=== PATIENT | female | born 1990 | race Caucasian/White ===

== ENCOUNTER 2020-12-15 09:30 | Outpatient (REF) | payer OTHER, SELFPAY ==
[2020-12-16 03:29] LABS: CT PCR NOT DETECTED (Not Detect.); NG PCR NOT DETECTED (Not Detect.)
[2020-12-19 20:57] LABS: HPV mRNA E6/E7 rflx Not Detected (Not Detected)
== END 2020-12-15 09:31 | disposition home or self-care (01) ==
LOC: HO.LAB 09:30
PROVIDERS: PCP Physician Assistant; Visit Provider Advanced Practice Midwife
DX: Z01.419 Encounter for gynecological examination (general) (routine) without abnormal findings (principal); B00.9 Herpesviral infection, unspecified; L73.8 Other specified follicular disorders; L02.32 Furuncle of buttock; Z20.2 Contact with and (suspected) exposure to infections with a predominantly sexual mode of transmission; Z86.19 Personal history of other infectious and parasitic diseases; Z80.3 Family history of malignant neoplasm of breast
CPT/HCPCS: 87491; 87591; 87624; 88142

== ENCOUNTER 2021-12-26 06:56 | Outpatient (RCR) | payer OTHER, SELFPAY | END 2022-07-15 12:31 | disposition home or self-care (01) | LOC: HO.PT 06:56 | PROVIDERS: PCP Physician Assistant; Visit Provider Nurse Practitioner Family | DX: M54.50 Low back pain, unspecified (principal) | CPT/HCPCS: 97110; 97112; 97140; 97162 ==

== ENCOUNTER 2022-03-11 14:32 | Outpatient (REF) | payer OTHER, SELFPAY ==
--- NOTE | ~2022-03-11 | XR_ITS ---
EXAMINATION: XR LUMBOSACRAL SPINE CLINICAL INFORMATION: Lumbago with sciatica COMPARISON: None TECHNIQUE: Three views of the lumbosacral spine. FINDINGS: There is normal lumbar lordosis. The vertebral heights and alignment is normal. There is loss of L5-S1 disc height. Rest the disc heights are normal. No visible acute fracture, dislocation or lytic process seen. SI joints are symmetrical and normal. XR/XR lumbar spine 2-3V IMPRESSION: Mild degenerative disc changes L5-S1 disc level. No visible acute fracture or dislocation seen.
== END 2022-03-11 14:33 | disposition home or self-care (01) ==
LOC: HO.XRAY 14:32
PROVIDERS: PCP Physician Assistant; Visit Provider Nurse Practitioner Family
DX: M54.40 Lumbago with sciatica, unspecified side (principal); M47.816 Spondylosis without myelopathy or radiculopathy, lumbar region; M62.830 Muscle spasm of back
CPT/HCPCS: 72100; 99202

== ENCOUNTER 2022-05-25 12:21 | Emergency (ER) | payer OTHER, SELFPAY ==
[2022-05-25 12:25] VITALS: BP 129/73; PULSE 84; RESP 18; TEMP 36.5; O2SAT 100; BMI 32.8
--- NOTE | 2022-05-25 14:07 | ED.LOWEXIN ---
HPI - Extremity Injury (Lower) General Chief Complaint: Extremity Injury, Lower Stated Complaint: possible broken foot Time Seen by Provider: 05/25/22 13:24 Source: patient Mode of arrival: ambulatory Limitations: no limitations History of Present Illness HPI Narrative: Patient presents emergency department for evaluation of right foot injury sustained at work prior to arrival. She states that a piece of trim board had fallen off of a cart landing onto her right foot. Is having pain particularly with weight-bearing and walking. There is bruising to the tip of her toe. Denies numbness or tingling. Is able to move the right great toe slightly but it is very painful. Related Data Previous Rx's Medication Instructions Recorded ipratropium bromide 21 mcg (0.03 2 spray intranasal BID 30 days #30 01/21/22 %) nasal spray mL cyclobenzaprine 5 mg tablet 5 mg PO BEDTIME PRN muscle spasm 03/11/22 30 days #30 tabs bupropion HCl 150 mg tablet,12 hr 150 mg PO BID 30 days #60 tabs 03/13/22 sustained-release (Wellbutrin SR) diclofenac potassium 50 mg tablet 50 mg PO BID PRN pain (scale score 05/14/22 7-10) 30 days #60 tabs oxycodone 5 mg tablet 5 mg PO Q8H PRN pain #7 tabs 05/25/22 Allergies Allergy/AdvReac Type Severity Reaction Status Date / Time Sulfa (Sulfonamide Allergy Mild RASH, hives Verified 03/18/22 15:13 Antibiotics) [SULFA (SULFONAMIDE ANTIBIOTICS)] Review of Systems Review of Systems: Musculoskeletal: Positive toe pain Neurologic: No numbness or tingling Yes all other systems are reviewed and are negative [facility] Past Medical History Attestation statement: The following information was validated with the patient. Source: old records reviewed Surgical History Pilonidal cyst Family History Family History Father No problems noted. Mother No problems noted. Maternal Grandmother Breast cancer Maternal Grandfather No problems noted. Paternal Grandfather No problems noted. Paternal Grandmother No problems noted. Maternal Aunt Breast cancer Daughter No problems noted. Social History Social History Housing: House Alcohol intake: never Patient Tobacco Use Status: Current everyday Tobacco user Cigarettes Per Day: 10 e-Cigarette/Vaping Use: Never Used Second Hand Smoke Exposure: No Advance Directives: No Advance Directives Information Provided: No service: No Current occupational status: employed Current occupation: [employer] Cognitive needs: Yes (would like a Cane for support due to back pain.) Hearing needs: No Vision needs: No Physical Exam Vital Signs: Vital Signs: Last Vital Signs Temp 97.7 F 05/25/22 12:25 Pulse 84 05/25/22 12:25 Resp 18 05/25/22 12:25 BP 129/73 05/25/22 12:25 Pulse Ox 100 05/25/22 12:25 O2 Del Method 05/25/22 12:25 BMI result Body Mass Index 32.8 Appearance: Alert.?Oriented to person, place and time. No acute distress.?Normal affect. Eyes: Pupils equal, round and reactive to light.? ENT: Pharynx normal.?? Neck: Normal inspection.? Neck supple.?? CVS: Heart sounds normal. Normal heart rate and rhythm.? Pulses normal.?? Respiratory: No respiratory distress.? Lung sounds clear to auscultation bilaterally?? Abdomen: Soft and non-tender. Normoactive bowel sounds. Skin: Skin warm and dry.? Normal skin color.? Extremities: No lower extremity edema.? Full range of motion to right ankle. 2+ DP/PT pulse intact bilaterally. Right great toe with mild localized erythema, no obvious deformity. Toenail is intact. Neuro: Moves all extremities spontaneously. Sensation intact bilaterally. Ambulates with antalgic gait. Course Course Course Narrative: Patient is a 32-year-old female with no significant past medical history presenting to emergency department for evaluation of right great toe injury sustained while at work. She is overall well-appearing. Extremities neurovascularly intact distally. XR reveals a nondisplaced intra-articular vertical fracture through the distal phalanx of the great toe. Discussed these findings with patient. Right great toe and 2nd digit carlos manuel-taped together, patient placed in a postoperative shoe. Discussed plan of care for discharge home, rest, ice, elevation, acetaminophen/ibuprofen as needed pain, oxycodone for severe pain. Advised outpatient follow-up with Orthopedics, light duty work, she states that she performs her job sitting in a chair and feels that she is able to return. Reviewed worsening signs and symptoms to return back to emergency department for. All questions were answered, patient was discharged home in stable condition, ambulatory with nonantalgic gait with the application of the postop shoe MDM - Extremity Injury (Lower) Medical Records Attestation: I reviewed the patient's medical records. Imaging Data XR foot: Radiologist's impression: XR/XR foot RT min 3V IMPRESSION: Nondisplaced intra-articular vertical fracture through the distal phalanx great toe. Discharge Plan Discharge Clinical Impression: Fracture of distal phalanx of great toe Qualifiers: Laterality: right Patient Disposition: Home, Self-Care Instructions: Toe Fracture (ED) Additional Instructions: Keep the toes taped as they currently are. Wear the shoe provided any time your walking or bearing weight. Be sure to rest, apply ice for 10-15 minutes 3-4 times daily, elevate your leg with pillows above the level of your chest at all times when possible. You can take ibuprofen 200 mg, 3 tablets (600mg) every 6-8 hours as needed for pain, in addition to Tylenol 500 mg, 2 tablets (1,000mg) every 4-6 hours as needed for pain, but not to exceed 3 doses daily (3,000mg).? Given given a prescription for oxycodone to use for severe pain unrelieved by Tylenol and ibuprofen. This is an opiate medication, it may be addictive and can make you drowsy. You should not drive, drink alcohol, operate machinery while taking this medication. You will need to follow up with Orthopedics, your been given their phone number please call their office first thing Friday. Return to the emergency department with any new or worsening symptoms or concerns. Prescriptions: New oxycodone 5 mg tablet 5 mg PO Q8H PRN (Reason: pain) Qty: 7 0RF Rx Instructions: Partial Fill upon patient request. No Action ipratropium bromide 21 mcg (0.03 %) spray,non-aerosol 2 spray intranasal BID 30 Days Qty: 30 3RF Rx Instructions: administer into each nostril bupropion HCl [Wellbutrin SR] 150 mg tablet sustained-release 12 hr 150 mg PO BID 30 Days Qty: 60 3RF diclofenac potassium 50 mg tablet 50 mg PO BID PRN (Reason: pain (scale score 7-10)) 30 Days Qty: 60 1RF cyclobenzaprine 5 mg tablet 5 mg PO BEDTIME PRN (Reason: muscle spasm) 30 Days Qty: 30 3RF Referrals: Mago Rasmussen PA-C [Physician [employer]ing [employer] Operator] - Stand Alone Forms: Work/School Release Interventions: ED Discharge Assessment Last Done: 05/25/22 14:54 Discharge Date/Time: 05/25/22 14:55
== END 2022-05-25 14:55 | disposition home or self-care (01) ==
PROVIDERS: Emergency Provider Emergency Medicine; PCP Physician Assistant
DX: S92.424A Nondisplaced fracture of distal phalanx of right great toe, initial encounter for closed fracture (principal); W20.8XXA Other cause of strike by thrown, projected or falling object, initial encounter; Y93.89 Activity, other specified; Y92.59 Other trade areas as the place of occurrence of the external cause; Y99.0 Civilian activity done for income or pay
CPT/HCPCS: 73630; 99282; 99283

== ENCOUNTER 2022-11-10 14:27 | Emergency (ER) | payer OTHER, SELFPAY ==
--- NOTE | ~2022-11-10 | XR_ITS ---
X-RAY RIGHT ANKLE X-RAY RIGHT FOOT CLINICAL HISTORY: Pain. Fall. COMPARISON: Radiograph of the right foot 05/25/2022. TECHNIQUE: 3 views of the right ankle and 3 views of the right foot. FINDINGS: Right ankle: No acute fractures or subluxation. The ankle mortise is congruent. Diffuse nonspecific soft tissue thickening. Right foot: Subtle intra-articular fracture at the base of the fourth distal phalanx, medial surface. Chronic deformity of the distal first phalanx. Diffuse nonspecific soft tissue thickening. Dorsal calcaneus spur. XR/XR foot RT 2V IMPRESSION: RIGHT ANKLE: No acute fractures or subluxation. RIGHT FOOT: Subtle intra-articular fracture at the base of the fourth distal phalanx.
--- NOTE | ~2022-11-10 | XR_ITS ---
X-RAY RIGHT ANKLE X-RAY RIGHT FOOT CLINICAL HISTORY: Pain. Fall. COMPARISON: Radiograph of the right foot 05/25/2022. TECHNIQUE: 3 views of the right ankle and 3 views of the right foot. FINDINGS: Right ankle: No acute fractures or subluxation. The ankle mortise is congruent. Diffuse nonspecific soft tissue thickening. Right foot: Subtle intra-articular fracture at the base of the fourth distal phalanx, medial surface. Chronic deformity of the distal first phalanx. Diffuse nonspecific soft tissue thickening. Dorsal calcaneus spur. XR/XR ankle RT 2V IMPRESSION: RIGHT ANKLE: No acute fractures or subluxation. RIGHT FOOT: Subtle intra-articular fracture at the base of the fourth distal phalanx.
[2022-11-10 15:20] VITALS: BP 117/69; PULSE 72; RESP 15; TEMP 36.7; O2SAT 99; BMI 33.5
--- NOTE | 2022-11-10 15:22 | ED.FALL ---
HPI - Fall General Chief Complaint: Extremity Injury, Lower Stated Complaint: R ankle inj Related Data Previous Rx's Medication Instructions Recorded ipratropium bromide 21 mcg (0.03 2 spray intranasal BID 30 days #30 01/21/22 %) nasal spray mL cyclobenzaprine 5 mg tablet 5 mg PO BEDTIME PRN muscle spasm 03/11/22 30 days #30 tabs bupropion HCl 150 mg tablet,12 hr 150 mg PO BID 30 days #60 tabs 07/18/22 sustained-release (Wellbutrin SR) diclofenac potassium 50 mg tablet See Rx Instructions .Route 10/01/22 .COMPLEX #30 tabs sertraline 25 mg tablet 25 mg PO DAILY #30 tabs 10/08/22 Allergies Allergy/AdvReac Type Severity Reaction Status Date / Time Sulfa (Sulfonamide Allergy Mild RASH, hives Verified 10/08/22 11:54 Antibiotics) [SULFA (SULFONAMIDE ANTIBIOTICS)] [facility] Past Medical History Surgical History Pilonidal cyst Family History Family History Father No problems noted. Mother No problems noted. Maternal Grandmother Breast cancer Maternal Grandfather No problems noted. Paternal Grandfather No problems noted. Paternal Grandmother No problems noted. Maternal Aunt Breast cancer Daughter No problems noted. Social History Social History Housing: House Alcohol intake: never Patient Tobacco Use Status: Current everyday Tobacco user Tobacco use type: Cigarette Cigarette Packs Per Day: 0.5 Cigarettes Per Day: 10 e-Cigarette/Vaping Use: Never Used Second Hand Smoke Exposure: Yes Advance Directives: No Advance Directives Information Provided: No service: No Current occupational status: employed Current occupation: [employer] Cognitive needs: Yes (would like a Cane for support due to back pain.) Hearing needs: No Vision needs: No Physical Exam Vital Signs: Vital Signs: Last Vital Signs Temp 98.1 F 11/10/22 15:20 Pulse 72 11/10/22 15:20 Resp 15 11/10/22 15:20 BP 117/69 11/10/22 15:20 Pulse Ox 99 11/10/22 15:20 O2 Del Method Room Air 11/10/22 15:20 BMI result Body Mass Index 33.5 Course Course Course Narrative: RME: 32 yold female presents to the ED for right ankle pain. patient foot got caught in crack in ground and she tripped and twisted her ankle. patient denies any head injury or loss of consciosuness. patient states no other physical complatins. Discharge Plan Discharge Clinical Impression: Fall Patient Disposition: Elopement Prescriptions: No Action ipratropium bromide 21 mcg (0.03 %) spray,non-aerosol 2 spray intranasal BID 30 Days Qty: 30 3RF Rx Instructions: administer into each nostril bupropion HCl [Wellbutrin SR] 150 mg tablet sustained-release 12 hr 150 mg PO BID 30 Days Qty: 60 6RF diclofenac potassium 50 mg tablet See Rx Instructions .ROUTE .COMPLEX Qty: 30 3RF Dose Instruction: TAKE 1 TABLET BY MOUTH EVERY DAY NEEDED ONLY WITH FOOD/FULL GLASS OF WATER (TAKE FOR PAIN 7 - 10) Rx Instructions: TAKE 1 TABLET BY MOUTH EVERY DAY NEEDED ONLY WITH FOOD/FULL GLASS OF WATER (TAKE FOR PAIN 7 - 10) sertraline 25 mg tablet 25 mg PO DAILY Qty: 30 1RF cyclobenzaprine 5 mg tablet 5 mg PO BEDTIME PRN (Reason: muscle spasm) 30 Days Qty: 30 3RF Discharge Date/Time: 11/10/22 19:33
== END 2022-11-10 19:33 | disposition left against medical advice (07) ==
PROVIDERS: Emergency Provider Emergency Medicine; PCP Physician Assistant
DX: S93.401A Sprain of unspecified ligament of right ankle, initial encounter (principal); X50.1XXA Overexertion from prolonged static or awkward postures, initial encounter; Y93.9 Activity, unspecified; Y92.9 Unspecified place or not applicable; Y99.9 Unspecified external cause status; Z79.899 Other long term (current) drug therapy
CPT/HCPCS: 73600; 73620; 99281; 99283

== ENCOUNTER 2024-04-16 11:12 | Outpatient (REF) | payer OTHER, SELFPAY ==
--- NOTE | ~2024-04-16 | US_ITS ---
EXAMINATION: US OBSTETRICAL ULTRASOUND CLINICAL INFORMATION: with uncertain dates COMPARISON: None available. LMP: 02/27/2024. Gestational age by maternal dates is 7 weeks and 0 days. Estimated date of delivery by maternal dates is 12/03/2024. TECHNIQUE: Ultrasound of the maternal pelvis is performed using transabdominal and transvaginal transducers. Transvaginal imaging is performed due to inadequate visualization transabdominally. M-mode Doppler is also performed. FINDINGS: There is a single intrauterine gestational sac with visible yolk sac, which is enlarged measuring 0.9 cm with a pole. No cardiac motion was detected. There is no significant subchorionic hemorrhage or hematoma. Nabothian cysts in the cervix. CRL (crown rump length): 0.4 cm (6 weeks and 4 days +/- 4 days). TEJAS (estimated date of delivery): 12/06/2024 +/- 4 days. MATERNAL ADNEXA: The right maternal ovary measures 2.6 x 1.5 x 1.8 cm. Calcifications noted adjacent to the ovary may reflect calcified phleboliths. The left maternal ovary measures 3.7 x 2.1 x 2.4 cm. There is no significant maternal adnexal mass. No maternal pelvic ascites. US/US OB <= 14 weeks fetus IMPRESSION: 1. Single intrauterine gestation with a crown-rump length of 0.4 cm and no cardiac motion and an enlarged yolk sac measuring 0.9 cm, which are findings suspicious for but not diagnostic of early loss. Recommend follow-up ultrasound in 7-10 days and correlation with beta hCGs to assess for viability. The sonographic gestational age is 6 weeks and 4 days +/- 4 days. 2. Estimated date of delivery is 12/06/2024 +/- 4 days. 3. No maternal adnexal mass or pelvic ascites. Per software manager report, the office of Dr. Patiño was notified of the findings at the time of scan. The findings and recommendations were discussed with Dr. Carbajal recreation program coordinator physician by telephone at 04/16/2024 5:02 PM EST and it was ascertained that the content and urgency of the report was understood at the time of direct communication. Electronically signed by: Catherine Troy MD 04/16/2024 05:02 PM EDT
== END 2024-04-16 11:13 | disposition home or self-care (01) ==
LOC: HO.US 11:12
PROVIDERS: PCP Physician Assistant; Visit Provider Advanced Practice Midwife
DX: Z34.91 Encounter for supervision of normal pregnancy, unspecified, first trimester (principal); Z3A.01 Less than 8 weeks gestation of pregnancy
CPT/HCPCS: 76801